=== PATIENT | female | born 1955 | race American Indian/Alaskan Native ===

== ENCOUNTER 2016-11-14 08:09 | Outpatient (CLI) | payer OTHER ==
--- NOTE | 2016-11-14 09:33 | Mammography Report ---
Bilateral mammogram: No previous studies available. CAD study utilized. Several small circumscribed densities measuring approximately 4 mm in diameter identified in the posterior mid/lower left breast. No microcalcifications normal. Impression: Circumscribed densities left breast. Comparison with previous studies is recommended. If Previous studies are not available, spot mag and sonographic examination may be advised. BI-RADS CATEGORY: 0 = Needs additional imaging evaluation ACR BI-RADS MAMMOGRAPHIC CODES: 0 = Needs additional imaging evaluation; 1 = Negative; 2 = Benign; 3 = Probably benign; 4 = Suspicious; 5 = Malignant; 6 = Known biopsy-proven malignancy COMMENT: 1. Dense breast tissue, i.e., adenosis, fibrocystic changes, etc., may obscure an underlying neoplasm. 2. Approximately 10% of cancers are not detected with mammography. 3. A negative mammography report should not delay biopsy if a clinically suspicious mass is present.
== END 2016-11-14 08:10 | disposition home or self-care (01) ==
LOC: SPVWC 08:09
PROVIDERS: ATTEND General Practice
DX: Z12.31 Encounter for screening mammogram for malignant neoplasm of breast (principal)
CPT/HCPCS: 77067; G0202

== ENCOUNTER 2017-06-11 08:41 | Outpatient (CLI) | payer OTHER ==
--- NOTE | 2017-06-11 10:29 | Mammography Report ---
LEFT DIGITAL DIAGNOSTIC MAMMOGRAM and LEFT BREAST ULTRASOUND: 06/11/17 08:41:00 CLINICAL: Followup asymmetries. COMPARISON:11/14/16 mammogram FINDINGS: Lateralmedial and spot compression LM and CC views were performed. Two partially circumscribed asymmetries persist. Ultrasound of the lower left breast was performed and demonstrated to benign cysts at 6 o'clock 5 cm from the nipple. It measures 7 x 3 x 5 mm and 4 x 3 x 4 mm. No solid mass or shadowing. IMPRESSION: Benign cysts left breast. BI-RADS CATEGORY: 2 - - Benign RECOMMENDATION: Routine mammographic screening. ACR BI-RADS MAMMOGRAPHIC CODES: 0 = Needs additional imaging evaluation; 1 = Negative; 2 = Benign; 3 = Probably benign; 4 = Suspicious; 5 = Malignant; 6 = Known biopsy-proven malignancy COMMENT: 1. Dense breast tissue, i.e., adenosis, fibrocystic changes, etc., may obscure an underlying neoplasm. 2. Approximately 10% of cancers are not detected with mammography. 3. A negative mammography report should not delay biopsy if a clinically suspicious mass is present. COMMENT: Patient follow-up letters are generated via our [employer] application.
== END 2017-06-11 08:42 | disposition home or self-care (01) ==
LOC: SPVWC 08:41
PROVIDERS: ATTEND General Practice
DX: N60.02 Solitary cyst of left breast (principal); N63.20 Unspecified lump in the left breast, unspecified quadrant